=== PATIENT | male | born 1990 | race African-American/Black ===

== ENCOUNTER 2016-09-17 21:08 | Emergency (ER) | payer SELFPAY ==
[~2016-09-17] VITALS: Ht 172.7 cm; Wt 91.8 kg
[2016-09-17 21:11] VITALS: TEMP 97.8
[2016-09-17] MEDS ORDERED: NORCO 325 MG-51 TAB PO (21:16)
[2016-09-17] MEDS ORDERED: FLEXERIL 1010 MG/TAB PO (23:09)
[2016-09-17 23:18] VITALS: BP 137/74; PULSE 84
== END 2016-09-17 23:18 | disposition home or self-care (01) ==
LOC: COL.ER 21:08
DX: M54.6 Pain in thoracic spine (principal); M54.5 Low back pain
CPT/HCPCS: J3360

== ENCOUNTER 2016-10-16 15:30 | Outpatient (RCR) | payer OTHER ==
[~2016-10-16 15:30] MED LIST: FLEXERIL 1010 MG/TAB PO; NORCO 325 MG-51 TAB PO
== END 2016-10-22 14:24 | disposition home or self-care (01) ==
LOC: WSPT 15:30
DX: M79.1 Myalgia (principal)

== ENCOUNTER → 2016-10-19 | Outpatient (CLI) | payer OTHER ==
[~2016-10-19] MED LIST changes: +SKELAXIN 4400 MG/TAB PO
== END ==
LOC: COL.RAD 08:14
DX: M79.1 Myalgia (principal); R20.2 Paresthesia of skin

== ENCOUNTER 2017-01-12 14:03 | Emergency (ER) | payer SELFPAY ==
[~2017-01-12] VITALS: Ht 172.7 cm; Wt 90.9 kg
[~2017-01-12 14:03] MED LIST changes: -SKELAXIN 4400 MG/TAB PO
[2017-01-12 14:09] VITALS: BP 132/77; TEMP 98
[2017-01-12] MEDS ORDERED: SKELAXIN 4400 MG/TAB PO (14:09)
[2017-01-12] MEDS ORDERED: FLEXERIL 1010 MG/TAB PO (15:18)
[2017-01-12] MEDS ORDERED: NORCO 325 MG-51 TAB PO (15:18)
[2017-01-12 15:26] VITALS: PULSE 88
== END 2017-01-12 15:27 | disposition home or self-care (01) ==
LOC: COL.ER 14:03
DX: M54.6 Pain in thoracic spine (principal); M54.2 Cervicalgia
CPT/HCPCS: J1885; J2360

== ENCOUNTER 2017-07-29 22:25 | Emergency (ER) | payer SELFPAY ==
[~2017-07-29] VITALS: Ht 172.7 cm; Wt 90.0 kg
[~2017-07-29 22:25] MED LIST changes: +SKELAXIN 4400 MG/TAB PO
[2017-07-29 22:31] VITALS: BP 144/66; TEMP 98.3
[2017-07-30] MEDS ORDERED: TESSALON P100 MG/CAP PO (00:15)
[2017-07-30 00:53] VITALS: PULSE 70
== END 2017-07-29 23:19 | disposition home or self-care (01) ==
LOC: COL.ER 22:25
DX: J06.9 Acute upper respiratory infection, unspecified (principal); J30.9 Allergic rhinitis, unspecified

== ENCOUNTER 2017-12-04 13:47 | Emergency (ER) | payer SELFPAY ==
[~2017-12-04] VITALS: Ht 172.7 cm; Wt 87.7 kg
[~2017-12-04 13:47] MED LIST changes: +TESSALON P100 MG/CAP PO
[2017-12-04 13:55] VITALS: BP 125/64; TEMP 98
[2017-12-04] MEDS ORDERED: TYLENOL 500MG500 MG PO (14:31)
[2017-12-04] MEDS ORDERED: IBU800 M1 PO (15:02)
[2017-12-04 15:09] VITALS: PULSE 80
== END 2017-12-04 15:10 | disposition home or self-care (01) ==
LOC: COL.ER 13:47
DX: M54.6 Pain in thoracic spine (principal); M54.16 Radiculopathy, lumbar region
CPT/HCPCS: J1885

== ENCOUNTER 2018-01-25 20:39 | Emergency (ER) | payer MEDICAID ==
[~2018-01-25] VITALS: Ht 172.7 cm; Wt 90.9 kg
[~2018-01-25 20:39] MED LIST changes: +IBU800 M1 PO; +TYLENOL 500MG500 MG PO
[2018-01-25 20:43] VITALS: TEMP 98
[2018-01-25] MEDS ORDERED: [UNRECOGNIZED DRUG - OTHER] PO (21:08)
[2018-01-25 21:45] VITALS: BP 133/84; PULSE 80
== END 2018-01-25 21:45 | disposition home or self-care (01) ==
LOC: COL.ER 20:39
DX: R11.2 Nausea with vomiting, unspecified (principal); R19.7 Diarrhea, unspecified; Z87.891 Personal history of nicotine dependence
CPT/HCPCS: J2550

== ENCOUNTER 2018-03-03 19:02 | Emergency (ER) | payer SELFPAY ==
[~2018-03-03] VITALS: Ht 172.7 cm; Wt 90.9 kg
[~2018-03-03 19:02] MED LIST changes: +[UNRECOGNIZED DRUG - OTHER] PO
[2018-03-03 19:05] VITALS: BP 164/61; PULSE 93; TEMP 97.8
[2018-03-03] MEDS ORDERED: TRIAMC 0.025 80 TOP (19:39)
== END 2018-03-03 19:46 | disposition home or self-care (01) ==
LOC: COL.ER 19:02
DX: R21 Rash and other nonspecific skin eruption (principal); Z87.891 Personal history of nicotine dependence

== ENCOUNTER 2018-03-19 17:02 | Emergency (ER) | payer MEDICAID ==
[~2018-03-19] VITALS: Ht 172.7 cm; Wt 90.9 kg
[~2018-03-19 17:02] MED LIST changes: +TRIAMC 0.025 80 TOP
[2018-03-19 17:11] VITALS: BP 131/70; TEMP 97.5
[2018-03-19] MEDS ORDERED: PROTONIX 40MG T40 MG PO (17:24)
[2018-03-19] MEDS ORDERED: CLARITIN 1010 MG/TAB PO (17:25)
[2018-03-19 17:37] LABS: BASO # 0.1 (0.0-0.2); BASO % 0.6 % (0.0-2.0); EOS # 0.2 (0.0-0.7); EOS % 1.8 % (0-4.0); GRAN # 6.4 (1.4-6.5); GRAN % 59.5 % (42.2-75.2); HEMATOCRIT 43.4 % (42.0-52.0); HEMOGLOBIN 14.7 g/dl (13.5-18.0); LYMPH % 28.2 % (20.0-51.0); MEAN CELL VOLUME 84 fl (80.0-100.0); MEAN CORPUSCULAR HEMOGLOBIN 29 pg (27.0-31.0); MEAN CORPUSCULAR HGB CONC 34 g/dl (33.0-37.0); MEAN PLATELET VOLUME 10.7 fl (7.4-10.4); MONO % 9.5 % (1.7-9.3); PLATELET COUNT 243 K/mm3 (130-400); RED BLOOD COUNT 5.14 M/mm3 (4.20-5.60); REDCELL DISTRIBUTION WIDTH-CV 13.4 % (11.5-14.5)
[2018-03-19 17:46] LABS: ALBUMIN 4.4 gm/dL (3.5-5.0); BILIRUBIN,TOTAL 0.5 mg/dL (0.0-1.0); CALCIUM 9.7 mg/dL (8.4-10.2); CREATININE, serum 1.17 mg/dL (0.66-1.25); TOTAL PROTEIN 7.8 gm/dL (6.4-8.2)
[2018-03-19 18:27] LABS: COLLECTION METHOD CLEAN CATCH
[2018-03-19 18:32] LABS: MUCOUS Present /lpf; PH 7 (5-8); SQUAMOUS EPITHELIAL None Seen /hpf; URINE APPEARANCE Clear; URINE BACTERIA None Seen /hpf; URINE BILIRUBIN Negative (NEGATIVE); URINE BLOOD Negative (NEGATIVE); URINE COLOR Yellow; URINE GLUCOSE Negative (NEGATIVE); URINE KETONE Negative (NEGATIVE); URINE LEUKOCYTE ESTERASE Negative (NEGATIVE); URINE NITRATE Negative (NEGATIVE); URINE PROTEIN(semi-quant) Negative (NEGATIVE); URINE RBC 0-2 /hpf; URINE UROBILINOGEN Negative (NEGATIVE)
[2018-03-19 19:46] VITALS: PULSE 79
== END 2018-03-19 19:47 | disposition home or self-care (01) ==
LOC: COL.ER 17:02
PROVIDERS: Family Medicine
DX: E86.0 Dehydration (principal)
CPT/HCPCS: J2405; J7030; J7120

== ENCOUNTER 2018-05-11 12:23 | Emergency (ER) | payer MEDICAID ==
[~2018-05-11] VITALS: Ht 172.7 cm; Wt 90.9 kg
[~2018-05-11 12:23] MED LIST changes: +CLARITIN 1010 MG/TAB PO; +PROTONIX 40MG T40 MG PO
[2018-05-11 12:24] VITALS: TEMP 98.9
[2018-05-11] MEDS ORDERED: AMOXICILLIN 50500 MG PO (12:54)
[2018-05-11 13:00] VITALS: BP 125/82; PULSE 72
== END 2018-05-11 13:03 | disposition home or self-care (01) ==
LOC: COL.ER 12:23
DX: J02.9 Acute pharyngitis, unspecified (principal); K21.9 Gastro-esophageal reflux disease without esophagitis; Z87.891 Personal history of nicotine dependence

== ENCOUNTER 2018-08-20 21:10 | Emergency (ER) | payer MEDICAID ==
[~2018-08-20] VITALS: Ht 172.7 cm; Wt 89.1 kg
[~2018-08-20 21:10] MED LIST changes: +AMOXICILLIN 50500 MG PO
[2018-08-20 21:13] VITALS: TEMP 98.6
[2018-08-20 21:42] LABS: BASO # 0.1 (0.0-0.2); BASO % 0.6 % (0.0-2.0); EOS # 0.3 (0.0-0.7); GRAN % 52.6 % (42.2-75.2); LYMPH # 4.5 (1.2-3.4); LYMPH % 33.7 % (20.0-51.0); MEAN CELL VOLUME 86 fl (80.0-100.0); MEAN CORPUSCULAR HEMOGLOBIN 29 pg (27.0-31.0); MEAN CORPUSCULAR HGB CONC 34 g/dl (33.0-37.0); MEAN PLATELET VOLUME 10.6 fl (7.4-10.4); MONO # 1.4 (0.1-0.6); MONO % 10.7 % (1.7-9.3); PLATELET COUNT 266 K/mm3 (130-400); RED BLOOD COUNT 5.12 M/mm3 (4.20-5.60); REDCELL DISTRIBUTION WIDTH-CV 14.2 % (11.5-14.5)
[2018-08-20 21:46] LABS: PROTHROMBIN TIME 11.8 SECONDS (9.7-12.8)
[2018-08-20 21:49] LABS: D-DIMER < 200.00 ng/mLDDu (200-230)
[2018-08-20 21:52] LABS: ALANINE AMINOTRANSFERASE 47 U/L (21-72); ALBUMIN 4.3 gm/dL (3.5-5.0); ALKALINE PHOSPHATASE 63 U/L (50-136); ANION GAP 6 mmol/L (7-16); AST,SGOT 35 U/L (15-37); BILIRUBIN,TOTAL 0.5 mg/dL (0.0-1.0); BLOOD UREA NITROGEN 9 mg/dL (9-20); CALCIUM 9.5 mg/dL (8.4-10.2); CARBON DIOXIDE 31 mmol/L (22-30); CHLORIDE 105 mmol/L (98-107); CREATININE, serum 1.11 mg/dL (0.66-1.25); GLUCOSE 85 mg/dL (74-106); LIPASE 147 U/L (23-300); POTASSIUM 4.4 mmol/L (3.4-5.0); SODIUM 141 mmol/L (137-145); TOTAL PROTEIN 7.5 gm/dL (6.4-8.2)
[2018-08-20 22:04] LABS: TROPONIN-I < 0.012 ng/mL (0.000-0.034)
[2018-08-20 22:40] VITALS: BP 127/94; PULSE 71
== END 2018-08-20 22:44 | disposition home or self-care (01) ==
LOC: COL.ER 21:10
PROVIDERS: Emergency Medicine
DX: R07.89 Other chest pain (principal)
CPT/HCPCS: J1885; J2405; J7030

== ENCOUNTER 2018-10-18 12:47 | Emergency (ER) | payer MEDICAID ==
[~2018-10-18] VITALS: Ht 172.7 cm; Wt 91.4 kg
[2018-10-18 12:51] VITALS: TEMP 97.8
[2018-10-18] MEDS ORDERED: FLEXERIL 1010 MG/TAB PO (13:05)
[2018-10-18 13:41] LABS: BASO # 0.1 (0.0-0.2); BASO % 0.7 % (0.0-2.0); EOS # 0.6 (0.0-0.7); EOS % 5.1 % (0-4.0); GRAN # 5.5 (1.4-6.5); GRAN % 49.6 % (42.2-75.2); HEMATOCRIT 47.1 % (42.0-52.0); LYMPH # 3.9 (1.2-3.4); LYMPH % 35.3 % (20.0-51.0); MEAN CELL VOLUME 86 fl (80.0-100.0); MEAN CORPUSCULAR HEMOGLOBIN 29 pg (27.0-31.0); MEAN CORPUSCULAR HGB CONC 34 g/dl (33.0-37.0); MEAN PLATELET VOLUME 10.7 fl (7.4-10.4); MONO % 8.9 % (1.7-9.3); PLATELET COUNT 235 K/mm3 (130-400); REDCELL DISTRIBUTION WIDTH-CV 13.5 % (11.5-14.5)
[2018-10-18 13:49] LABS: ALANINE AMINOTRANSFERASE 44 U/L (21-72); ALBUMIN 4.4 gm/dL (3.5-5.0); ALKALINE PHOSPHATASE 74 U/L (50-136); ANION GAP 8 mmol/L (7-16); AST,SGOT 59 U/L (15-37); BILIRUBIN,TOTAL 0.7 mg/dL (0.0-1.0); BLOOD UREA NITROGEN 10 mg/dL (9-20); CALCIUM 9.7 mg/dL (8.4-10.2); CARBON DIOXIDE 28 mmol/L (22-30); CHLORIDE 102 mmol/L (98-107); CREATININE, serum 1.14 mg/dL (0.66-1.25); GLUCOSE 100 mg/dL (74-106); POTASSIUM 4.5 mmol/L (3.4-5.0); SODIUM 138 mmol/L (137-145); TOTAL PROTEIN 7.9 gm/dL (6.4-8.2)
[2018-10-18 13:50] LABS: C-REACTIVE PROTEIN < 0.5 mg/dL (0.0-0.9)
[2018-10-18] MEDS ORDERED: ZOFRAN ODT4 MG PO (15:47)
[2018-10-18 16:14] VITALS: BP 130/93; PULSE 103
== END 2018-10-18 16:15 | disposition home or self-care (01) ==
LOC: COL.ER 12:47
PROVIDERS: Nurse Practitioner
DX: R11.2 Nausea with vomiting, unspecified (principal)
CPT/HCPCS: J2405; J7030

== ENCOUNTER 2018-11-07 18:01 | Emergency (ER) | payer MEDICAID ==
[~2018-11-07] VITALS: Ht 172.7 cm; Wt 90.9 kg
[~2018-11-07 18:01] MED LIST changes: +ZOFRAN ODT4 MG PO
[2018-11-07 18:19] VITALS: TEMP 97.4
[2018-11-07 19:05] LABS: ALBUMIN 4.6 gm/dL (3.5-5.0); BILIRUBIN,TOTAL 0.4 mg/dL (0.0-1.0); CALCIUM 9.8 mg/dL (8.4-10.2); CREATININE, serum 1.14 mg/dL (0.66-1.25); POTASSIUM 4.4 mmol/L (3.4-5.0); TOTAL PROTEIN 8.3 gm/dL (6.4-8.2)
[2018-11-07 19:21] LABS: BASO # 0.1 (0.0-0.2); BASO % 0.8 % (0.0-2.0); EOS # 0.3 (0.0-0.7); EOS % 2.6 % (0-4.0); GRAN # 6.5 (1.4-6.5); HEMATOCRIT 47.8 % (42.0-52.0); HEMOGLOBIN 16.3 g/dl (13.5-18.0); LYMPH % 33.1 % (20.0-51.0); MEAN CELL VOLUME 86 fl (80.0-100.0); MEAN CORPUSCULAR HEMOGLOBIN 29 pg (27.0-31.0); MEAN CORPUSCULAR HGB CONC 34 g/dl (33.0-37.0); MONO # 1.1 (0.1-0.6); PLATELET COUNT 244 K/mm3 (130-400); RED BLOOD COUNT 5.58 M/mm3 (4.20-5.60); REDCELL DISTRIBUTION WIDTH-CV 13.4 % (11.5-14.5)
[2018-11-07] MEDS ORDERED: PROTONIX 40MG T40 MG PO (19:59)
[2018-11-07] MEDS ORDERED: ZOFRAN ODT4 MG PO (19:59)
[2018-11-07 20:48] VITALS: BP 132/94; PULSE 80
== END 2018-11-07 20:49 | disposition home or self-care (01) ==
LOC: COL.ER 18:01
PROVIDERS: Emergency Medicine
DX: K29.70 Gastritis, unspecified, without bleeding (principal)
CPT/HCPCS: C9113; J2405; J7030

== ENCOUNTER 2019-03-09 19:25 | Emergency (ER) | payer BC, MEDICAID ==
[~2019-03-09] VITALS: Ht 172.7 cm; Wt 95.5 kg
[2019-03-09 19:36] VITALS: BP 134/78; TEMP 97.5
[2019-03-09 20:08] LABS: STREP SCREEN NEGATIVE
[2019-03-09] MEDS ORDERED: ZITHROMAX Z PA250 MG PO (20:11)
[2019-03-09 20:35] VITALS: PULSE 68
== END 2019-03-09 20:35 | disposition home or self-care (01) ==
LOC: COL.ER 19:25
PROVIDERS: Physician Assistant
DX: B34.9 Viral infection, unspecified (principal)

== ENCOUNTER 2019-03-19 19:00 | Emergency (ER) | payer BC, MEDICAID ==
[~2019-03-19] VITALS: Ht 172.7 cm; Wt 95.5 kg
[~2019-03-19 19:00] MED LIST changes: +ZITHROMAX Z PA250 MG PO
[2019-03-19 19:04] VITALS: TEMP 97.6
[2019-03-19 20:10] LABS: BASO # 0.1 (0.0-0.2); BASO % 0.8 % (0.0-2.0); EOS # 0.3 (0.0-0.7); EOS % 2.6 % (0-4.0); GRAN # 6.7 (1.4-6.5); GRAN % 65.6 % (42.2-75.2); HEMATOCRIT 43.5 % (42.0-52.0); HEMOGLOBIN 14.5 g/dl (13.5-18.0); LYMPH # 2.2 (1.2-3.4); LYMPH % 21.9 % (20.0-51.0); MEAN CELL VOLUME 84 fl (80.0-100.0); MEAN CORPUSCULAR HEMOGLOBIN 28 pg (27.0-31.0); MEAN CORPUSCULAR HGB CONC 33 g/dl (33.0-37.0); MEAN PLATELET VOLUME 10.4 fl (7.4-10.4); MONO # 0.9 (0.1-0.6); MONO % 8.7 % (1.7-9.3); PLATELET COUNT 267 K/mm3 (130-400); RED BLOOD COUNT 5.16 M/mm3 (4.20-5.60); REDCELL DISTRIBUTION WIDTH-CV 13.8 % (11.5-14.5)
[2019-03-19 20:20] LABS: ALBUMIN 4.3 gm/dL (3.5-5.0); BILIRUBIN,TOTAL 0.5 mg/dL (0.0-1.0); CALCIUM 9.6 mg/dL (8.4-10.2); CREATININE, serum 0.99 (0.66-1.25); POTASSIUM 4.1 mmol/L (3.4-5.0)
[2019-03-19] MEDS ORDERED: ZOFRAN 4MG T4 MG/TAB PO (21:16)
[2019-03-19 21:31] VITALS: BP 107/64; PULSE 95
== END 2019-03-19 21:31 | disposition home or self-care (01) ==
LOC: COL.ER 19:00
PROVIDERS: Emergency Medicine
DX: R11.2 Nausea with vomiting, unspecified (principal); R53.81 Other malaise; R53.83 Other fatigue; K21.9 Gastro-esophageal reflux disease without esophagitis
CPT/HCPCS: J2405; J7030

== ENCOUNTER → 2019-04-18 | Outpatient (CLI) | payer MEDICAID ==
[~2019-04-18] MED LIST changes: +ZOFRAN 4MG T4 MG/TAB PO
== END ==
LOC: COL.RAD 08:12
DX: M47.897 Other spondylosis, lumbosacral region (principal); G89.29 Other chronic pain

== ENCOUNTER → 2019-05-16 | Outpatient (CLI) | payer MEDICAID | LOC: MHCPAIN 10:01 | DX: G89.29 Other chronic pain (principal); M47.817 Spondylosis without myelopathy or radiculopathy, lumbosacral region; M54.16 Radiculopathy, lumbar region; M53.3 Sacrococcygeal disorders, not elsewhere classified | CPT/HCPCS: G0463 ==

== ENCOUNTER → 2019-05-31 | Outpatient (CLI) | payer MEDICAID | LOC: MHCPAIN 10:35 | DX: M79.18 Myalgia, other site (principal) | CPT/HCPCS: G0260; J1040 ==

== ENCOUNTER 2019-06-17 17:00 | Emergency (ER) | payer MEDICAID ==
[~2019-06-17] VITALS: Ht 172.7 cm; Wt 90.9 kg
[2019-06-17 17:15] VITALS: TEMP 98.5
[2019-06-17] MEDS ORDERED: TYLENOL 500MG500 MG PO (17:59)
[2019-06-17 18:30] VITALS: BP 127/89; PULSE 79
== END 2019-06-17 18:40 | disposition home or self-care (01) ==
LOC: COL.ER 17:00
DX: Z77.120 Contact with and (suspected) exposure to mold (toxic) (principal); K21.9 Gastro-esophageal reflux disease without esophagitis

== ENCOUNTER 2019-07-30 19:01 | Emergency (ER) | payer MEDICAID ==
[~2019-07-30] VITALS: Ht 172.7 cm; Wt 90.9 kg
[2019-07-30 19:30] LABS: BASO # 0.1 (0.0-0.2); BASO % 0.7 % (0.0-2.0); EOS # 0.4 (0.0-0.7); EOS % 2.5 % (0-4.0); GRAN # 7.6 (1.4-6.5); GRAN % 54.1 % (42.2-75.2); HEMATOCRIT 44.4 % (42.0-52.0); HEMOGLOBIN 14.7 g/dl (13.5-18.0); LYMPH # 4.4 (1.2-3.4); LYMPH % 31.7 % (20.0-51.0); MEAN CELL VOLUME 86 fl (80.0-100.0); MEAN CORPUSCULAR HEMOGLOBIN 28 pg (27.0-31.0); MEAN CORPUSCULAR HGB CONC 33 g/dl (33.0-37.0); MEAN PLATELET VOLUME 10.8 fl (7.4-10.4); MONO # 1.5 (0.1-0.6); MONO % 10.6 % (1.7-9.3); PLATELET COUNT 240 K/mm3 (130-400); RED BLOOD COUNT 5.18 M/mm3 (4.20-5.60); REDCELL DISTRIBUTION WIDTH-CV 14.8 % (11.5-14.5)
[2019-07-30 19:42] LABS: ALBUMIN 4.4 gm/dL (3.5-5.0); BILIRUBIN,TOTAL 0.3 mg/dL (0.0-1.0); CALCIUM 9.4 mg/dL (8.4-10.2); CREATININE, serum 1.24 (0.66-1.25); TOTAL PROTEIN 7.7 gm/dL (6.4-8.2)
[2019-07-30 20:33] VITALS: BP 116/89; PULSE 97; TEMP 98.4
== END 2019-07-30 20:38 | disposition home or self-care (01) ==
LOC: COL.ER 19:01
PROVIDERS: Emergency Medicine
DX: K29.70 Gastritis, unspecified, without bleeding (principal)
CPT/HCPCS: C9113; J2405; J7030

== ENCOUNTER 2019-08-26 08:12 | Emergency (ER) | payer MEDICAID ==
[~2019-08-26] VITALS: Ht 172.7 cm; Wt 96.8 kg
[2019-08-26 08:18] VITALS: TEMP 97.6
[2019-08-26 08:52] LABS: BASO # 0.1 (0.0-0.2); BASO % 0.8 % (0.0-2.0); EOS # 0.3 (0.0-0.7); EOS % 3.7 % (0-4.0); GRAN # 4.2 (1.4-6.5); GRAN % 47.9 % (42.2-75.2); HEMOGLOBIN 15.2 g/dl (13.5-18.0); LYMPH # 3.5 (1.2-3.4); LYMPH % 39.5 % (20.0-51.0); MEAN CELL VOLUME 84 fl (80.0-100.0); MEAN CORPUSCULAR HEMOGLOBIN 29 pg (27.0-31.0); MEAN CORPUSCULAR HGB CONC 34 g/dl (33.0-37.0); MEAN PLATELET VOLUME 10.4 fl (7.4-10.4); MONO # 0.7 (0.1-0.6); MONO % 7.9 % (1.7-9.3); PLATELET COUNT 246 K/mm3 (130-400); RED BLOOD COUNT 5.34 M/mm3 (4.20-5.60); REDCELL DISTRIBUTION WIDTH-CV 14.3 % (11.5-14.5)
[2019-08-26 09:03] LABS: ALBUMIN 4.5 gm/dL (3.5-5.0); BILIRUBIN,TOTAL 0.4 mg/dL (0.0-1.0); CALCIUM 9.3 mg/dL (8.4-10.2); CREATININE, serum 1.23 (0.66-1.25); POTASSIUM 4.1 mmol/L (3.4-5.0); TOTAL PROTEIN 7.8 gm/dL (6.4-8.2)
[2019-08-26 09:48] VITALS: BP 111/73; PULSE 73
== END 2019-08-26 09:44 | disposition home or self-care (01) ==
LOC: COL.ER 08:12
PROVIDERS: Nurse Practitioner Primary Care
DX: K52.9 Noninfective gastroenteritis and colitis, unspecified (principal); K21.9 Gastro-esophageal reflux disease without esophagitis; R73.03 Prediabetes
CPT/HCPCS: J2405; J7030

== ENCOUNTER 2019-10-14 16:29 | Emergency (ER) | payer MEDICAID ==
[~2019-10-14] VITALS: Ht 172.7 cm; Wt 97.7 kg
[2019-10-14 16:51] VITALS: BP 140/76; TEMP 98.6
[2019-10-14 18:18] LABS: COLLECTION METHOD CLEAN CATCH
[2019-10-14 18:24] LABS: MUCOUS Present /lpf; PH 6 (5-8); SQUAMOUS EPITHELIAL None Seen /hpf; URINE APPEARANCE Clear; URINE BACTERIA None Seen /hpf; URINE BILIRUBIN Negative (NEGATIVE); URINE BLOOD Negative (NEGATIVE); URINE COLOR Yellow; URINE GLUCOSE Negative (NEGATIVE); URINE KETONE Negative (NEGATIVE); URINE LEUKOCYTE ESTERASE Negative (NEGATIVE); URINE NITRATE Negative (NEGATIVE); URINE PROTEIN(semi-quant) Negative (NEGATIVE); URINE RBC 0-2 /hpf
[2019-10-14 19:13] VITALS: PULSE 82
== END 2019-10-14 19:14 | disposition home or self-care (01) ==
LOC: COL.ER 16:29
PROVIDERS: Physician Assistant
DX: J06.9 Acute upper respiratory infection, unspecified (principal)

== ENCOUNTER → 2020-05-14 | Outpatient (CLI) | payer MEDICAID | LOC: COL.PUL | DX: K21.9 Gastro-esophageal reflux disease without esophagitis (principal); R06.02 Shortness of breath; Z87.891 Personal history of nicotine dependence ==

== ENCOUNTER 2020-08-15 19:07 | Emergency (ER) | payer MEDICAID ==
[~2020-08-15] VITALS: Ht 172.7 cm; Wt 100.0 kg
[2020-08-15 19:29] VITALS: TEMP 97.5
[2020-08-15 20:18] LABS: BASO # 0.1 (0.0-0.2); BASO % 0.6 % (0.0-2.0); EOS # 0.3 (0.0-0.7); EOS % 2.5 % (0-4.0); GRAN % 58.4 % (42.2-75.2); HEMATOCRIT 44.8 % (42.0-52.0); LYMPH # 3.9 (1.2-3.4); LYMPH % 28.9 % (20.0-51.0); MEAN CELL VOLUME 85 fl (80.0-100.0); MEAN CORPUSCULAR HEMOGLOBIN 28 pg (27.0-31.0); MEAN CORPUSCULAR HGB CONC 34 g/dl (33.0-37.0); MEAN PLATELET VOLUME 10.8 fl (7.4-10.4); MONO # 1.3 (0.1-0.6); MONO % 9.2 % (1.7-9.3); PLATELET COUNT 257 K/mm3 (130-400); RED BLOOD COUNT 5.29 M/mm3 (4.20-5.60); REDCELL DISTRIBUTION WIDTH-CV 13.9 % (11.5-14.5)
[2020-08-15 20:32] LABS: ALANINE AMINOTRANSFERASE 39 U/L (4-49); ALBUMIN 4.4 gm/dL (3.5-5.0); ALKALINE PHOSPHATASE 82 U/L (50-136); ANION GAP 8 mmol/L (7-16); AST,SGOT 32 U/L (15-37); BILIRUBIN,TOTAL 0.3 mg/dL (0.0-1.0); BLOOD UREA NITROGEN 15 mg/dL (9-20); CALCIUM 9.3 mg/dL (8.4-10.2); CARBON DIOXIDE 27 mmol/L (22-30); CHLORIDE 103 mmol/L (98-107); CREATININE, serum 1.25 (0.66-1.25); GLUCOSE 117 mg/dL (74-106); POTASSIUM 4.2 mmol/L (3.4-5.0); SODIUM 138 mmol/L (137-145); TOTAL PROTEIN 7.5 gm/dL (6.4-8.2)
[2020-08-15 20:56] LABS: TROPONIN-I < 0.012 ng/mL (0.000-0.035)
[2020-08-15 21:39] LABS: COLLECTION METHOD CLEAN CATCH
[2020-08-15 21:49] LABS: MUCOUS Present /lpf; PH 6 (5-8); SQUAMOUS EPITHELIAL None Seen /hpf; URINE APPEARANCE Clear; URINE BACTERIA None Seen /hpf; URINE BILIRUBIN Negative (NEGATIVE); URINE BLOOD Negative (NEGATIVE); URINE COLOR Yellow; URINE GLUCOSE Negative (NEGATIVE); URINE KETONE Negative (NEGATIVE); URINE LEUKOCYTE ESTERASE Negative (NEGATIVE); URINE NITRATE Negative (NEGATIVE); URINE PROTEIN(semi-quant) Negative (NEGATIVE); URINE RBC 0-2 /hpf; URINE UROBILINOGEN Negative (NEGATIVE)
[2020-08-15 22:35] VITALS: BP 141/104; PULSE 79
== END 2020-08-15 22:35 | disposition home or self-care (01) ==
LOC: COL.ER 19:07
PROVIDERS: Emergency Medicine
DX: R55 Syncope and collapse (principal); Z87.891 Personal history of nicotine dependence; Z79.1 Long term (current) use of non-steroidal anti-inflammatories (NSAID)
CPT/HCPCS: J7030

== ENCOUNTER 2020-09-24 20:15 | Emergency (ER) | payer MEDICAID ==
[~2020-09-24] VITALS: Ht 172.7 cm; Wt 100.0 kg
[2020-09-24 20:34] VITALS: TEMP 98.3
[2020-09-24 21:26] LABS: BASO # 0.1 (0.0-0.2); BASO % 0.5 % (0.0-2.0); EOS # 0.2 (0.0-0.7); EOS % 1.6 % (0-4.0); GRAN # 6.6 (1.4-6.5); GRAN % 56.1 % (42.2-75.2); HEMATOCRIT 42.4 % (42.0-52.0); LYMPH # 3.7 (1.2-3.4); LYMPH % 31.4 % (20.0-51.0); MEAN CELL VOLUME 85 fl (80.0-100.0); MEAN CORPUSCULAR HEMOGLOBIN 28 pg (27.0-31.0); MEAN CORPUSCULAR HGB CONC 33 g/dl (33.0-37.0); MEAN PLATELET VOLUME 10.7 fl (7.4-10.4); MONO # 1.2 (0.1-0.6); MONO % 10.1 % (1.7-9.3); PLATELET COUNT 244 K/mm3 (130-400); REDCELL DISTRIBUTION WIDTH-CV 14.6 % (11.5-14.5)
[2020-09-24 21:33] LABS: ALBUMIN 4.3 gm/dL (3.5-5.0); BILIRUBIN,TOTAL 0.4 mg/dL (0.0-1.0); CALCIUM 9.5 mg/dL (8.4-10.2); CREATININE, serum 1.12 (0.66-1.25); POTASSIUM 4.1 mmol/L (3.4-5.0); TOTAL PROTEIN 7.3 gm/dL (6.4-8.2)
[2020-09-24 21:53] VITALS: BP 128/91; PULSE 88
== END 2020-09-24 21:58 | disposition home or self-care (01) ==
LOC: COL.ER 20:15
PROVIDERS: Physician Assistant
DX: B34.9 Viral infection, unspecified (principal); Z87.891 Personal history of nicotine dependence

== ENCOUNTER 2020-12-02 10:04 | Emergency (ER) | payer MEDICAID ==
[~2020-12-02] VITALS: Ht 172.7 cm; Wt 100.0 kg
[2020-12-02 10:14] VITALS: TEMP 98.3
[2020-12-02 10:44] LABS: BASO # 0.1 (0.0-0.2); BASO % 0.8 % (0.0-2.0); EOS # 0.2 (0.0-0.7); EOS % 2.1 % (0-4.0); GRAN # 4.8 (1.4-6.5); GRAN % 55.3 % (42.2-75.2); HEMATOCRIT 47.8 % (42.0-52.0); HEMOGLOBIN 15.7 g/dl (13.5-18.0); LYMPH # 2.6 (1.2-3.4); LYMPH % 29.4 % (20.0-51.0); MEAN CELL VOLUME 86 fl (80.0-100.0); MEAN CORPUSCULAR HEMOGLOBIN 28 pg (27.0-31.0); MEAN CORPUSCULAR HGB CONC 33 g/dl (33.0-37.0); MEAN PLATELET VOLUME 10.8 fl (7.4-10.4); MONO # 1.1 (0.1-0.6); MONO % 12.1 % (1.7-9.3); PLATELET COUNT 246 K/mm3 (130-400); RED BLOOD COUNT 5.53 M/mm3 (4.20-5.60); REDCELL DISTRIBUTION WIDTH-CV 14.6 % (11.5-14.5)
[2020-12-02 10:53] LABS: ALBUMIN 4.5 gm/dL (3.5-5.0); BILIRUBIN,TOTAL 0.5 mg/dL (0.0-1.0); CALCIUM 9.4 mg/dL (8.4-10.2); CREATININE, serum 1.22 (0.66-1.25)
[2020-12-02 12:08] VITALS: BP 140/80; PULSE 70
== END 2020-12-02 12:09 | disposition home or self-care (01) ==
LOC: COL.ER 10:04
PROVIDERS: Emergency Medicine
DX: G93.3 Postviral and related fatigue syndromes (principal); Z86.16 Personal history of COVID-19; Z20.822 Contact with and (suspected) exposure to COVID-19
CPT/HCPCS: J1885; J2405; J7030

== ENCOUNTER 2021-02-25 07:54 | Emergency (ER) | payer MEDICAID ==
[~2021-02-25] VITALS: Ht 172.7 cm; Wt 95.5 kg
[2021-02-25 08:21] VITALS: TEMP 98.1
[2021-02-25 09:39] LABS: BASO # 0.1 (0.0-0.2); BASO % 0.8 % (0.0-2.0); EOS # 0.2 (0.0-0.7); EOS % 2.4 % (0-4.0); GRAN # 4.8 (1.4-6.5); GRAN % 55.8 % (42.2-75.2); HEMATOCRIT 44.2 % (42.0-52.0); LYMPH # 2.7 (1.2-3.4); LYMPH % 30.9 % (20.0-51.0); MEAN CELL VOLUME 84 fl (80.0-100.0); MEAN CORPUSCULAR HEMOGLOBIN 29 pg (27.0-31.0); MEAN CORPUSCULAR HGB CONC 34 g/dl (33.0-37.0); MEAN PLATELET VOLUME 10.8 fl (7.4-10.4); MONO # 0.9 (0.1-0.6); PLATELET COUNT 240 K/mm3 (130-400); RED BLOOD COUNT 5.24 M/mm3 (4.20-5.60); REDCELL DISTRIBUTION WIDTH-CV 14.2 % (11.5-14.5)
[2021-02-25 09:43] LABS: ALBUMIN 4.2 gm/dL (3.5-5.0); BILIRUBIN,TOTAL 0.3 mg/dL (0.0-1.0); CALCIUM 9.4 mg/dL (8.4-10.2); CREATININE, serum 1.02 (0.66-1.25); POTASSIUM 4.3 mmol/L (3.4-5.0); TOTAL PROTEIN 7.3 gm/dL (6.4-8.2)
[2021-02-25] MEDS ORDERED: ZOFRAN ODT4 MG PO (10:27)
[2021-02-25 10:50] VITALS: BP 117/57; PULSE 67
== END 2021-02-25 10:50 | disposition home or self-care (01) ==
LOC: COL.ER 07:54
PROVIDERS: Personal Emergency Response Attendant
DX: R11.0 Nausea (principal)
CPT/HCPCS: J2405; J7030

== ENCOUNTER 2021-03-10 14:00 | Emergency (ER) | payer MEDICAID ==
[~2021-03-10] VITALS: Ht 172.7 cm; Wt 95.9 kg
[2021-03-10] MEDS ORDERED: PRILOSEC 20MG20 MG PO (14:51)
[2021-03-10 14:52] VITALS: BP 116/74; PULSE 66; TEMP 97.5
== END 2021-03-10 15:44 | disposition left against medical advice (07) ==
LOC: COL.ER 14:00
DX: R11.0 Nausea (principal)

== ENCOUNTER 2021-03-11 12:44 | Emergency (ER) | payer MEDICAID ==
[~2021-03-11] VITALS: Ht 172.7 cm; Wt 95.5 kg
[~2021-03-11 12:44] MED LIST changes: +PRILOSEC 20MG20 MG PO
[2021-03-11 13:05] VITALS: TEMP 98.4
[2021-03-11 13:31] LABS: COLLECTION METHOD CLEAN CATCH
[2021-03-11 13:38] LABS: MUCOUS Present /lpf; PH 5 (5-8); SQUAMOUS EPITHELIAL None Seen /hpf; URINE APPEARANCE Hazy; URINE BACTERIA None Seen /hpf; URINE BILIRUBIN Negative (NEGATIVE); URINE BLOOD Negative (NEGATIVE); URINE COLOR Yellow; URINE GLUCOSE Negative (NEGATIVE); URINE KETONE Negative (NEGATIVE); URINE LEUKOCYTE ESTERASE Negative (NEGATIVE); URINE NITRATE Negative (NEGATIVE); URINE PROTEIN(semi-quant) Negative (NEGATIVE); URINE UROBILINOGEN Negative (NEGATIVE)
[2021-03-11 13:42] LABS: URINE RBC 0-2 /hpf
[2021-03-11 13:44] LABS: BASO # 0.1 (0.0-0.2); BASO % 0.6 % (0.0-2.0); EOS # 0.2 (0.0-0.7); EOS % 1.8 % (0-4.0); GRAN # 6.3 (1.4-6.5); GRAN % 66.1 % (42.2-75.2); HEMATOCRIT 47.6 % (42.0-52.0); HEMOGLOBIN 15.9 g/dl (13.5-18.0); LYMPH # 2.1 (1.2-3.4); LYMPH % 21.9 % (20.0-51.0); MEAN CELL VOLUME 85 fl (80.0-100.0); MEAN CORPUSCULAR HEMOGLOBIN 28 pg (27.0-31.0); MEAN CORPUSCULAR HGB CONC 33 g/dl (33.0-37.0); MEAN PLATELET VOLUME 10.6 fl (7.4-10.4); MONO # 0.9 (0.1-0.6); MONO % 9.3 % (1.7-9.3); PLATELET COUNT 245 K/mm3 (130-400); RED BLOOD COUNT 5.62 M/mm3 (4.20-5.60); REDCELL DISTRIBUTION WIDTH-CV 14.5 % (11.5-14.5)
[2021-03-11 13:55] LABS: ALBUMIN 4.4 gm/dL (3.5-5.0); BILIRUBIN,TOTAL 0.4 mg/dL (0.0-1.0); C-REACTIVE PROTEIN 0.7 mg/dL (0.0-0.9); CALCIUM 9.4 mg/dL (8.4-10.2); CREATININE, serum 1.12 (0.66-1.25); TOTAL PROTEIN 7.8 gm/dL (6.4-8.2)
[2021-03-11 15:35] VITALS: BP 115/82; PULSE 78
== END 2021-03-11 15:35 | disposition home or self-care (01) ==
LOC: COL.ER 12:44
PROVIDERS: Nurse Practitioner
DX: R10.84 Generalized abdominal pain (principal); K21.9 Gastro-esophageal reflux disease without esophagitis; Z91.14 Patient's other noncompliance with medication regimen; Z79.899 Other long term (current) drug therapy

== ENCOUNTER → 2021-04-01 | Outpatient (CLI) | payer MEDICAID | LOC: COL.RAD 07:07 | DX: K76.9 Liver disease, unspecified (principal) | CPT/HCPCS: Q9967 ==

== ENCOUNTER → 2021-04-28 | Outpatient (CLI) | payer MEDICAID | LOC: COL.RAD 09:25 | DX: K21.9 Gastro-esophageal reflux disease without esophagitis (principal) | CPT/HCPCS: A9537 ==